=== PATIENT | female | born 1995 | race Caucasian/White ===

== ENCOUNTER 2018-08-20 20:16 | Emergency (ER) | payer OTHER ==
[~2018-08-20] VITALS: Ht 167.6 cm; Wt 65.5 kg
[2018-08-20 20:21] VITALS: BP 155/74; PULSE 96; RESP 16; Ht 167.6 cm; Wt 65.5 kg
--- NOTE | 2018-08-20 22:49 | ERD ---
ER Documentation Chief Complaint Chief Complaint dizziness, +preg test, hx ectopic on R, denies pain HPI 23-year-old female, A1 with history of 1 ectopic , presents to the emergency department, complaining of pelvic pain for 5 days, she is very concerned about having another ectopic . Her LMP was 07/20/18. She denies vaginal bleeding, no vaginal discharge, no fever or chills. The patient has not established care yet. ROS All systems reviewed and are negative except as per history of present illness. Medications Home Meds Active Scripts Acetaminophen* (Tylenol*) 325 Mg Tablet, 2 TAB PO Q6 PRN for PAIN AND OR ELEVATED TEMP, #20 TAB Prov:PIPPA CARRENO MD 08/21/18 Cephalexin* (Keflex*) 500 Mg Capsule, 500 MG PO TID for 7 Days, CAP Prov:PIPPA CARRENO MD 08/21/18 Allergies Allergies: Coded Allergies: No Known Allergy (Unverified , 08/20/18) PMhx/Soc History of Surgery: Yes (c/section, ectopic ) Hx Alcohol Use: No Hx Substance Use: No Hx Tobacco Use: No Smoking Status: Never smoker Physical Exam Vitals Vital Signs Date Temp Pulse Resp B/P (MAP) Pulse Ox O2 O2 Flow FiO2 Time Delivery Rate 08/20/18 98.5 96 16 155/74 99 20:21 (101) Physical Exam Const: No acute distress Head: Atraumatic Eyes: Normal Conjunctiva ENT: Normal External Ears, Nose and Mouth. Neck: Full range of motion. No meningismus. Resp: Clear to auscultation bilaterally Cardio: Regular rate and rhythm, no murmurs Abd: Soft, non tender, non distended. Normal bowel sounds Skin: No petechiae or rashes Back: No midline or flank tenderness Ext: No cyanosis, or edema Neur: Awake and alert Psych: Normal Mood and Affect Result Diagram: 08/20/18 2300 08/20/18 2300 Results 24 hrs Laboratory Tests Test 08/20/18 23:00 White Blood Count 6.3 10^3/ul Red Blood Count 4.33 10^6/ul Hemoglobin 10.2 g/dl Hematocrit 33.9 % Mean Corpuscular Volume 78.3 fl Mean Corpuscular Hemoglobin 23.6 pg Mean Corpuscular Hemoglobin Concent 30.1 g/dl Red Cell Distribution Width 14.5 % Platelet Count 332 10^3/UL Mean Platelet Volume 8.9 fl Immature Granulocytes % 0.300 % Neutrophils % 60.5 % Lymphocytes % 28.8 % Monocytes % 7.8 % Eosinophils % 1.6 % Basophils % 1.0 % Nucleated Red Blood Cells % 0.0 /100WBC Immature Granulocytes # 0.020 10^3/ul Neutrophils # 3.8 10^3/ul Lymphocytes # 1.8 10^3/ul Monocytes # 0.5 10^3/ul Eosinophils # 0.1 10^3/ul Basophils # 0.1 10^3/ul Nucleated Red Blood Cells # 0.0 10^3/ul Urine Color YELLOW Urine Clarity CLOUDY Urine pH 6.0 Urine Specific [place] 1.021 Urine Ketones NEGATIVE mg/dL Urine Nitrite NEGATIVE mg/dL Urine Bilirubin NEGATIVE mg/dL Urine Urobilinogen NEGATIVE mg/dL Urine Leukocyte Esterase 3+ Dayron/ul Urine Microscopic RBC 4 /HPF Urine Microscopic WBC 30 /HPF Urine Squamous Epithelial Cells MODERATE /HPF Urine Bacteria FEW /HPF Urine Mucus MANY /HPF Urine Hemoglobin NEGATIVE mg/dL Urine Glucose NEGATIVE mg/dL Urine Total Protein NEGATIVE mg/dl Sodium Level 140 mmol/L Potassium Level 3.8 mmol/L Chloride Level 102 mmol/L Carbon Dioxide Level 26 mmol/L Anion Gap 12 Blood Urea Nitrogen 15 mg/dl Creatinine 0.83 mg/dl Est Glomerular Filtrat Rate mL/min > 60 mL/min Glucose Level 102 mg/dl Calcium Level 9.8 mg/dl Beta HCG, Quantitative 3453.6 mIU/ml Patient: JOSE MAZARIEGOS : 1995 Age: 23 Sex: F MR #: [id number] DOS: 08/20/18 2250 Ordering MD: PIPPA CARRENO MD Location: [facility] Room/Bed: PROCEDURE: US OB. CLINICAL INDICATION: Pelvic pain in early . TECHNIQUE: Transabdominal delete the views of the pelvis are available for review. No trans vaginal images are presented COMPARISON: No prior studies are available for comparison. FINDINGS: A single intrauterine gestational sac is evident. [place]-rump length: Fetus not identified Gestational sac diameter: 6 mm heart rate: Not identified Ultrasound estimated gestational age: 5 weeks 1 day No ovarian or adnexal mass lesion is seen. There is no free fluid. . IMPRESSION: 1. Single live intrauterine with an estimated gestational age of 5 weeks 1 day. This yields an estimated due date of 04/21/2019. RPTAT:AAJJ Physician Azeem Date Time Electronically viewed and signed by Nikki Wren Physician on 08/21/2018 00:21 GW/ CC: PIPPA CARRENO MD [id number] Procedures/MDM Vital signs stable, Physical exam unremarkable. Differential diagnosis include but not limited to: UTI, threatening , incomplete versus complete , ectopic , physiologic implantation bleeding, molar . Physical examination and clinical presentation most likely consistent with urinary tract infection in early . During the ED course the patient remained hemodynamically stable and asymptomatic. Results and clinical impression discussed with patient who agrees with management. The patient is stable to be treated outpatient and will be discharged home with close monitoring and follow-up in 2 days with her primary physician. Bed rest and pelvic rest recommended until further medical evaluation. The patient was instructed regarding the outcomes and the potential complications like severe bleeding and . If the patient presents severe bleeding or pain, she was instructed to return to the hospital immediately. Disclaimer: Inadvertent spelling and grammatical errors are likely due to EHR/dictation software use and do not reflect on the overall quality of patient care. Also, please note that the electronic time recorded on this note does not necessarily reflect the actual time of the patient encounter. Departure Diagnosis: Primary Impression: Early stage of Additional Impression: UTI (urinary tract infection) Condition: Stable Additional Instructions: Thank you very much for allowing us to participate in your care. Your health and safety is our top priority at [facility]. Call your primary care doctor TOMORROW for an appointment during the next 2-4 d ays and bring all the information and medications prescribed. Have prescriptions filled and follow precisely the directions on the label. If the symptoms get worse and your provider is unavailable, return to the Emergency Department immediately. PIPPA CARRENO MD Aug 20, 2018 22:49
[2018-08-21] MEDS ORDERED: CEPH-443 PO (00:21)
[2018-08-21] MEDS ORDERED: ACET325T33 PO (00:21)
== END 2018-08-21 00:30 | disposition home or self-care (01) ==
LOC: FTE 20:16
DX: O23.41 Unspecified infection of urinary tract in pregnancy, first trimester (principal); R10.2 Pelvic and perineal pain; Z3A.01 Less than 8 weeks gestation of pregnancy
CPT/HCPCS: 36415; 76801; 80048; 81001; 84702; 85025; Z7502

== ENCOUNTER 2018-08-23 18:16 | Emergency (ER) | payer OTHER ==
[~2018-08-23] VITALS: Ht 170.2 cm; Wt 66.5 kg
[~2018-08-23 18:16] MED LIST: ACET325T33 PO; CEPH-443 PO
[2018-08-23 18:25] VITALS: Ht 170.2 cm; Wt 66.5 kg
[2018-08-23] MEDS ORDERED: ACETAMINOPHEN 325 MG TAB PO STA (19:47)
--- NOTE | 2018-08-23 20:16 | ERD ---
ER Documentation Chief Complaint Chief Complaint Pt reports cramping and light bleeding +preg HPI This is a 23-year-old female with a history of 1 ectopic who presents ED at roughly 5 weeks with complaints of some light vaginal spotting she noticed earlier this morning. Last menstrual period was 319. Patient admits to some lower pelvic cramping associated with the spotting. Patient also states that she was seen here 5 days ago for pelvic pain. Denies chest pain, shortness breath, trouble breathing, dysuria, hematuria, nausea, vomiting, diarrhea, constipation, hematemesis, melena, which is in all other symptoms ROS All systems reviewed and are negative except as per history of present illness. Medications Home Meds Active Scripts Cephalexin* (Keflex*) 500 Mg Capsule, 500 MG PO BID for 7 Days, CAP Prov:SHANNA HUSTON PA-C 08/23/18 Acetaminophen* (Tylenol*) 325 Mg Tablet, 2 TAB PO Q6 PRN for PAIN AND OR ELEVA NAIDA TEMP, #20 TAB Prov:PIPPA CARRENO MD 08/21/18 Cephalexin* (Keflex*) 500 Mg Capsule, 500 MG PO TID for 7 Days, CAP Prov:PIPPA CARRENO MD 08/21/18 Allergies Allergies: Coded Allergies: No Known Allergy (Unverified , 08/23/18) PMhx/Soc History of Surgery: Yes (c/section, ectopic ) Hx Alcohol Use: No Hx Substance Use: No Hx Tobacco Use: No Smoking Status: Never smoker FmHx Family History: No diabetes Physical Exam Vitals Vital Signs Date Temp Pulse Resp B/P (MAP) Pulse Ox O2 O2 Flow FiO2 Time Delivery Rate 08/23/18 98.3 88 16 111/58 100 18:25 (75) Physical Exam Physical Exam Vitals signs: Reviewed by me. General: Well developed, well nourished, in no acute distress. Patient is awake and alert. Head: Normocephalic, atraumatic. Eyes: Normal conjunctiva, Pupils PERRLA, EOM intact grossly ENT: Pharynx is clear, Moist mucous membranes, external ears, nose and mouth normal Neck: Supple, no masses, lymphadenopathy or JVD Respiratory: Clear to auscultation bilaterally with no wheezing, rhonchi, rales, no distress Cardiovascular: RRR, no murmurs, rubs, or gallops Abdominal: Soft, nondistended, no peritoneal signs, no rigidity, no surgical abdomen, bowel sounds present all 4 quadrants, nontender light deep palpation all 4 quadrants, no suprapubic tenderness, McBurney's point nontender, no rebound tenderness Back: No midline tenderness. No flank tenderness Neurologic: Alert and oriented, moving all extremities, normal speech, no focal weakness, no cerebellar signs. Normal mentation Skin: warm and dry, No rash Psych: Normal mood Result Diagram: 08/23/181999 Results 24 hrs Laboratory Tests Test 08/23/18 20:00 White Blood Count 7.4 10^3/ul Red Blood Count 4.34 10^6/ul Hemoglobin 10.4 g/dl Hematocrit 33.7 % Mean Corpuscular Volume 77.6 fl Mean Corpuscular Hemoglobin 24.0 pg Mean Corpuscular Hemoglobin Concent 30.9 g/dl Red Cell Distribution Width 14.9 % Platelet Count 369 10^3/UL Mean Platelet Volume 10.2 fl Immature Granulocytes % 0.100 % Neutrophils % 59.1 % Lymphocytes % 31.0 % Monocytes % 6.8 % Eosinophils % 1.9 % Basophils % 1.1 % Nucleated Red Blood Cells % 0.0 /100WBC Immature Granulocytes # 0.010 10^3/ul Neutrophils # 4.4 10^3/ul Lymphocytes # 2.3 10^3/ul Monocytes # 0.5 10^3/ul Eosinophils # 0.1 10^3/ul Basophils # 0.1 10^3/ul Nucleated Red Blood Cells # 0.0 10^3/ul Urine Color YELLOW Urine Clarity [place]IGHT[place] CLOUDY Urine pH 6.0 Urine Specific [place] 1.021 Urine Ketones TRACE mg/dL Urine Nitrite NEGATIVE mg/dL Urine Bilirubin NEGATIVE mg/dL Urine Urobilinogen NEGATIVE mg/dL Urine Leukocyte Esterase 2+ Dayron/ul Urine Microscopic RBC 4 /HPF Urine Microscopic WBC 7 /HPF Urine Squamous Epithelial Cells FEW /HPF Urine Calcium Oxalate Crystals MANY /HPF Urine Mucus FEW /HPF Urine Hemoglobin 3+ mg/dL Urine Glucose NEGATIVE mg/dL Urine Total Protein NEGATIVE mg/dl Beta HCG, Quantitative 7358.4 mIU/ml Current Medications Medications Dose Sig/Milo Start Time Status Last (Trade) Ordered Route PRN Stop Time Admin Dose Reason Admin 650 mg ONCE STAT 08/23/18 DC 08/23/18 Acetaminophen PO 19:47 08/23/18 19:58 (Tylenol 19:49 Tab) Procedures/MDM EKG, MONITORS, & DIAGNOSTIC IMAGING: [place] [id number] Radiology Main Line: [phone] DIAGNOSTIC IMAGING REPORT Patient: JOSE MAZARIEGOS : 1995 Age: 23 Sex: F MR #: [id number] DOS: 08/23/181946 Ordering MD: SHANNA HUSTON PA-C Location: [facility] Room/Bed: PROCEDURE: US Obstetrical 1st Trimester CLINICAL INDICATION: Vaginal bleeding TECHNIQUE: Multiple real-time images were acquired of the patient's maternal abdomen utilizing a curved array transducer. COMPARISON: 08/20/2018 FINDINGS: There is a well implanted gestational sac within the fundus of the uterus with a mean sac diameter of 0.77 cm which corresponds to a gestational sac age of 5 w eeks 3 days plus or minus 1 week.. A yolk sac is identified. No pole is identified. There is a sonolucent focus seen adjacent to the gestational sac measuring 7 x 4 x 2 mm compatible with subchorionic hemorrhage. Several Nabothian cysts are seen in the cervix. The right ovary measures 3.8 x 2.8 x 1.8 cm and appears normal.. The left ovary measures 3.5 x 3.1 x 2.5 cm and contains a 1.7 cm slightly complex cyst. Vascular flow is demonstrated in each ovary on Doppler. There is a small amount of free intraperitoneal fluid seen in the cul-de-sac. No adnexal mass is identified. IMPRESSION: 1. Intrauterine of unknown viability. There is again an intrauterine gestational sac now with a yolk sac. Estimated gestational age by mean sac diameter is 5 weeks 3 days that is concordant with the expected gestational age by dates of 4 weeks 6 days. At this early gestational age, an embryo is not yet identified and viability cannot be established. Recommend correlation with serum Beta HCG and follow-up ultrasound in 10-14 days or earlier if clinically warranted. 2. 7 x 4 x 2 mm subchorionic hemorrhage seen adjacent to the gestational sac. Multiple Nabothian cysts are seen in the cervix. 3. Interval development of a 1.7 cm complex left ovarian cyst. The right ovary appears normal. Vascular flow is demonstrated in each ovary on Doppler. 4. Interval development of a small amount of free intraperitoneal fluid within the cul-de-sac. 6. No adnexal mass is identified. Physician Kassy Date Time Electronically viewed and signed by Gonsalo Manning Physician on 08/23/2018 21:15 RH/ CC: SHANNA HUSTON PA-C [id number] LAB INTERPRETATION: CBC shows no evidence of hemorrhage or infection mildly decreased hemoglobin 10.4, mildly decreased hematocrit 33.7 HCG 7358.4 Urinalysis remarkable for 7 WBCs, 4 RBCs, 2+ leukocyte esterase Blood type O positive ER COURSE: The patient was given Tylenol The medication was well tolerated and the patient reports improvement in symptoms. The patient was stable throughout ED course. I kept the patient and/or family informed of laboratory and diagnostic imaging results throughout the emergency room course. The patient was promptly evaluated and a treatment plan was devised based on H&P and other data. This plan was discussed with the patient who agreed and had no further questions or concerns prior to discharge. MEDICAL DECISION MAKING: This is a 23 year-old female, G [id number], who presents with vaginal bleeding at roughly 5 weeks . Ultrasound confirms an intrauterine -but there is unknown viability. The ultrasound states that the intrauterine gestational sac now has a yolk sac and is averaged at roughly 5 weeks and 3 days gestation by sac diameter there is not yet an embryo identified -but at this early gestational age there is a not uncommon to be able to identify the embryo.. When comparing patient's beta-hCG due to prior hCG performed here it is increasing. Ectopic not visualized. Good flow to each ovaries. Patient is O+ and does not require any rhogam. Urinalysis reflects UTI but patient is currently on antibiotics for UTI that she was diagnosed with here 2 days ago. She is hemodynamically stable. Patient will need to repeat quantitative hCG in the next 48-72 days to show a upward trend. Advise for patient either return to the ER for repeat quantitative hCG or to follow-up with her [facility] doctor for this. At this time there is no [facility] emergency. Advised to return to ER with any worsening symptoms. DISPOSITION PLAN: We discussed follow up with the patient's primary care doctor within 24 to 48 hours. Patient counseled regarding my diagnostic impression and care plan. Prior to discharge all questions answered. Pt agrees with treatment plan and understands strict return precautions. Precautionary instructions provided including instructions to return to the ER if not improving or for any worsening or changing symptoms or concerns. SPECIALIST FOLLOW UP RECOMMENDED: OBGYN Patient has been advised to follow up with primary care in 1-2 days. Disclaimer: Inadvertent spelling and grammatical errors are likely due to EHR/dictation software use and do not reflect on the overall quality of patient care. Also, please note that the electronic time recorded on this note does not necessarily reflect the actual time of the patient encounter. Departure Diagnosis: Primary Impression: Vaginal bleeding in patient at less than 20 weeks gestation Additional Impression: UTI (urinary tract infection) Urinary tract infection type: site unspecified Hematuria presence: without hematuria Qualified Codes: N39.0 - Urinary tract infection, site not specified Condition: Stable Patient Instructions: Bleeding During Early , Understanding Urinary Tract Infections (UTIs) Referrals: [facility] REFERRAL LIST Additional Instructions: Return in 48-72 hours to have a repeat ultrasound and possibly repeat blood work. Or be seen by your OB doctor for this. patient advised to return to the ED immediately for new or worsening symptoms. Patient advised to follow up with primary care provider in the next 24-48 hours. Patient verbalized understanding and agrees with treatment plan and course of action. If patient has no primary care they may follow up with one of the community clinics listed on the following page or one of the options listed below [facility] + [facility] [address] [place] [id number] or [facility] [address] [place] [address] or [facility] [address] [place] [address] SHANNA HUSTON PA-C Aug 23, 2018 20:16
[2018-08-23] MEDS ORDERED: CEPH-443 PO (22:10)
[2018-08-23 22:29] VITALS: BP 116/62; PULSE 75; RESP 18
== END 2018-08-23 22:30 | disposition home or self-care (01) ==
LOC: FTE 18:16
DX: O20.9 Hemorrhage in early pregnancy, unspecified (principal); O23.41 Unspecified infection of urinary tract in pregnancy, first trimester; R10.2 Pelvic and perineal pain; Z3A.01 Less than 8 weeks gestation of pregnancy
CPT/HCPCS: 76801; 76817; 81001; 84702; 85025; 86900; 86901; 87086; Z7610; 36415